=== PATIENT | female | born 1960 | race Caucasian/White ===

== ENCOUNTER 2019-12-31 12:07 | Emergency (ER) | payer MEDICARE, SELFPAY ==
[2019-12-31 12:50] VITALS: BP 135/55; PULSE 78; RESP 18; TEMP 37.6; O2SAT 98
--- NOTE | 2019-12-31 13:23 | ED.GENADULT ---
HPI - General Adult General Chief complaint: Upper Respiratory Infection Stated complaint: Cough/Fever Time Seen by Provider: 12/31/19 13:23 Source: patient Mode of arrival: ambulatory Limitations: no limitations History of Present Illness HPI narrative: 59-year-old female patient presents to the [facility] with complaints of cold symptoms for the past 3 days. Patient states she has had a lot of nasal congestion, runny nose, drainage to the back the throat and a cough. Patient states that she has had some low-grade fevers. Patient denies any ear pain, sore throat, chest pain or shortness of breath. Patient states that she did get a flu shot this year. Related Data Home Medications Medication Instructions Recorded Confirmed alprazolam [Xanax] 0.25 mg PO HS PRN 12/31/19 12/31/19 aspirin 81 mg PO DAILY 12/31/19 12/31/19 baclofen 10 mg PO BID 12/31/19 12/31/19 bupropion HCl [Wellbutrin XL] 300 mg PO QAM 12/31/19 12/31/19 dalfampridine 10 mg PO Q12H 12/31/19 12/31/19 dimethyl fumarate [Tecfidera] 240 mg PO BID 12/31/19 12/31/19 hydrochlorothiazide 12.5 mg PO DAILY 12/31/19 12/31/19 losartan 100 mg PO DAILY 12/31/19 12/31/19 rosuvastatin 10 mg PO DAILY 12/31/19 12/31/19 Allergies Allergy/AdvReac Type Severity Reaction Status Date / Time codeine Allergy Rash Verified 12/31/19 12:59 Penicillins Allergy Rash Verified 12/31/19 12:59 Review of Systems Review of Systems: Narrative: CONSTITUTIONAL: Positive subjective fever, chills, or sweats. EYES: Denies visual changes, redness, or discharge. ENT: Positive rhinorrhea, congestion, denies sore throat, or otalgia. CARDIOVASCULAR: Denies chest pain, palpitations, or edema. RESPIRATORY: Positive cough, denies any dyspnea. GASTROINTESTINAL: Denies abdominal pain, nausea, vomiting, or diarrhea. GENITOURINARY: Denies dysuria or hematuria. SKIN: Denies rash or itching. MUSCULOSKELETAL: Denies back pain, joint pain, or myalgia. NEUROLOGIC: Denies headache, numbness, or weakness. PSYCHIATRIC: Denies anxiety or depression. PMFSH Comments At the time of my signature I agree with nursing past medical history, surgical, social, and family history. There is no relevant family history pertinent to the presenting complaint. Exam Narrative: Exam Narrative: GENERAL: Well-appearing, well-nourished, and in no acute distress. HEAD: Normocephalic, atraumatic. No tenderness noted to frontal maxillary sinuses on palpation. EYES: PERRLA and EOMI. ENT: Nares with erythema and edema noted bilaterally with the left nare swollen shut, no rhinorrhea or epistaxis. Mucous membranes moist. Posterior pharynx with no erythema, tonsillar edema, exudates. Bilateral TMs are clear no erythema no foreign bodies to the canal NECK: Supple. No lymphadenopathy CHEST: Clear to auscultation. No respiratory distress. HEART: Regular rate and rhythm. No murmur heard. Normal peripheral pulses. ABDOMEN: Soft, nontender, nondistended, normal active bowel sounds. EXTREMITIES: Normal range of motion. No edema. SKIN: Warm, dry, no rash. NEURO: No focal deficits. Alert and oriented x3. Course Vital Signs Vital signs: Vital Signs Temperature 37.6 C 12/31/19 12:50 Pulse Rate 78 12/31/19 12:50 Respiratory Rate 18 12/31/19 12:50 Blood Pressure 135/55 L 12/31/19 12:50 Pulse Oximetry 98 12/31/19 12:50 Temperature 37.6 C 12/31/19 12:50 Pulse Rate 78 12/31/19 12:50 Respiratory Rate 18 12/31/19 12:50 Blood Pressure 135/55 L 12/31/19 12:50 Pulse Oximetry 98 12/31/19 12:50 Vital signs reviewed. Medical Decision Making Differential Diagnosis Differential Diagnosis: Differential diagnosis: Allergic rhinitis, chronic sinusitis, tonsillitis, acute sinusitis, infectious mononucleosis, seasonal influenza, pertussis, diphtheria, meningococcal disease, viral syndrome, viral bronchitis, RSV. Notify patient that she is negative today for influenza. Discussed with her that she has a lot of congestion
== END 2019-12-31 13:40 | disposition home or self-care (01) ==
PROVIDERS: Emergency Provider Nurse Practitioner Family; PCP Family Medicine
DX: J06.9 Acute upper respiratory infection, unspecified (principal); G35 Multiple sclerosis; Z96.652 Presence of left artificial knee joint
CPT/HCPCS: 87804; 99202; G0463